=== PATIENT | male | born 1985 | race Caucasian/White ===

== ENCOUNTER 2022-07-14 00:19 | Emergency (ER) | payer BC ==
[~2022-07-14] VITALS: Ht 182.9 cm; Wt 83.2 kg
[2022-07-14 00:54] LABS: COVID AG,FIA SOURCE NASAL SWAB
[2022-07-14] MEDS ORDERED: ALBUTEROL SULFATE 2.5 MG/0.5 ML NEB SOLUTION NEB ONE ×2 (01:00→03:00)
[2022-07-14] MEDS ORDERED: MIDAZOLAM HCL 100 MG in SODIUM CHLORIDE 0.9% 180 ML IV PRN (01:00)
[2022-07-14 01:15] LABS: INFLUENZA TYPE A NEGATIVE FOR TYPE A (NEGATIVE); INFLUENZA TYPE B NEGATIVE FOR TYPE B (NEGATIVE)
[2022-07-14] MEDS ORDERED: IPRATROPIUM BROMIDE 0.5 MG/2.5 ML NEB SOLUTION NEB ONE (01:15)
[2022-07-14] MEDS ORDERED: DEXAMETHASONE 4 MG TABLET PO ONE (01:15)
[2022-07-14] MEDS ORDERED: ALBUTEROL SULFATE HFA 90 MCG/PUFF 8 GM INHALER IH ONE (03:00)
[2022-07-14 05:20] VITALS: BP 124/72
== END 2022-07-14 05:20 | disposition home or self-care (01) ==
LOC: EMS 00:25
DX: J45.909 Unspecified asthma, uncomplicated (principal); F17.210 Nicotine dependence, cigarettes, uncomplicated; Z20.822 Contact with and (suspected) exposure to COVID-19
CPT/HCPCS: 99285; 71045; 87426; 87804; 94640; J8540; 99284; J3535; J7613